=== PATIENT | female | born 1945 | race Caucasian/White ===

== ENCOUNTER 2017-04-19 11:00 | Emergency (ER) | payer MEDICARE ==
[2017-04-19] MEDS ORDERED: traMADol HCl 50 MG TAB ONE (11:39)
[2017-04-19 12:27] LABS: #Basophils 0.1 thou/uL (0.0-0.2); #Eosinphils 0.1 thou/uL (0.0-0.7); #Lymphocytes 2.7 thou/uL (1.20-3.40); #Monocytes 0.7 thou/uL (0.11-0.59); #Neutrophils 6.6 thou/uL (1.40-6.50); %Basophils 0.9 % (0.0-1.0); %Lymphocytes 26.1 % (21.0-51.0); %Monocytes 6.8 % (0.0-10.0); %Neutrophils 65.2 % (42.0-75.0); Hemoglobin 13.7 g/dL (12.0-16.0); Mean Corpuscular HGB CONC 32.5 g/dL (32.0-36.0); Mean Corpuscular Hemoglobin 27.1 pg (27.0-31.0); Mean Corpuscular Volume 83.3 fl (81.0-99.0); Mean Platelet Volume 8.4 fL (7.4-10.4); Platelet Count 253 thou/uL (130-400); RBC Distribution Width 14.5 % (11.5-14.5); Red Blood Cell (RBC) Count 5.06 mill/uL (4.20-5.40); White Blood Cell (WBC) Count 10.2 thou/uL (4.8-10.8)
[2017-04-19 12:41] LABS: ALT (SGPT) 25 U/L (8-55); AST (SGOT) 24 U/L (5-34); Albumin 4.3 g/dL (3.4-4.8); Alkaline Phosphatase 131 U/L (40-150); Anion Gap 18 mmol/L (10-20); BUN (Urea Nitrogen) 9 mg/dL (9.8-20.1); Bilirubin, Total 0.5 mg/dL (0.2-1.2); Calc. Creatinine Clearance 0 mL/min (70-130); Calcium 9.8 mg/dL (7.8-10.44); Carbon Dioxide 19 mmol/L (23-31); Chloride 107 mmol/L (98-107); Estimated GFR-MDRD 85; Globulin 2.7 g/dL (2.4-3.5); Glucose 114 mg/dL (83-110); Potassium 3.6 mmol/L (3.5-5.1); Sodium 140 mmol/L (136-145)
--- NOTE | 2017-04-19 12:47 | RAD ---
FOUR VIEWS OF THE RIGHT FEMUR: INDICATIONS: History of right leg pain after postop. COMPARISON: The exam is compared to a prior exam, dated 12/19/2016. FINDINGS: There has been progressive healing involving the instrumented supracondylar femur fracture. This is incompletely healed, however. The lateral plate and screw construct projects in the expected positio n. The expansile deformity of the proximal tibia appears similar. There is diffuse osteopenia. No acute osseous abnormality is evident. IMPRESSION: Healing instrumented supracondylar femur fracture. POS: ALOK
[2017-04-19 14:25] LABS: Bilirubin Large (Negative); Blood, Urine Negative (Negative); Clarity CLOUDY (Clear); Glucose, Urine (Dipstick) Negative (Negative); Leukocyte Moderate (Negative); Nitrite Negative (Negative); Protein, Urine (Dipstick) 30 mg/dL (Neg-Trace); Specific Gravity, Urine 1.031 (1.002-1.036)
[2017-04-19 14:34] LABS: Bacteria/HPF Rare-Few HPF (None Seen); WBC/HPF 21-50 HPF (0-3)
[2017-04-19 14:35] LABS: Pathc Cast-AUWi Flag 8.67 (0-2.49); Yeast-AUWi Flag 44.5 (0-25.0)
[2017-04-19 14:52] LABS: Hyaline Casts/LPF NONE SEEN LPF (0-3 Hyaline); Manual Microscopic Reviewed? No Path Casts Seen; RBC/HPF None Seen HPF (0-3)
== END 2017-04-19 18:16 | disposition home or self-care (01) ==
LOC: ERS 11:00
DX: K52.9 Noninfective gastroenteritis and colitis, unspecified (principal); M79.604 Pain in right leg; N39.0 Urinary tract infection, site not specified; E78.5 Hyperlipidemia, unspecified; E78.00 Pure hypercholesterolemia, unspecified; F41.9 Anxiety disorder, unspecified; F32.9 Major depressive disorder, single episode, unspecified
CPT/HCPCS: 36415; 80053; 81003; 81015; 85025; 93005; 96372; J2270

== ENCOUNTER 2018-01-06 13:57 | Outpatient (CLI) | payer MEDICARE ==
--- NOTE | 2018-01-06 16:04 | BD ---
BONE DENSITOMETRY USING DEXA: Date: 01/06/18 HISTORY: Postmenopausal screening for osteoporosis. FINDINGS: Lumbar Spine: BMD (g/cm2) L1 0.779 T-Score: -1.9 Z-Score: 0.1 L2 0.843 T-Score: -1.7 Z-Score: 0.6 L3 0.783 T-Score: -2.7 Z-Score: -0.4 L4 0.901 T-Score: -1.5 Z-Score: 1.0 L1-L4 0.831 T-Score: -2.0 Z-Score: 0.3 Right Forearm: 1/3 0.583 T-Score: -1.9 Z-Score: 0.5 Mid 0.424 T-Score: -3.3 Z-Score: -1.0 UD 0.346 T-Score: -1.7 Z-Score: 0.0 Total 0.430 T-Score: -2.8 Z-Score: -0.5 IMPRESSION: Osteopenia. POS: C
== END 2018-01-06 13:58 | disposition home or self-care (01) ==
LOC: BICMAMMO 13:57
PROVIDERS: ATTEND Internal Medicine Rheumatology
DX: M81.0 Age-related osteoporosis without current pathological fracture (principal); M85.89 Other specified disorders of bone density and structure, multiple sites
CPT/HCPCS: 77080

== ENCOUNTER 2021-09-05 11:31 | Outpatient (CLI) | payer MEDICARE | END 2021-09-05 11:32 | disposition home or self-care (01) | LOC: LABBT 11:31 | PROVIDERS: ATTEND Anesthesiology Pain Medicine | DX: Z20.822 Contact with and (suspected) exposure to COVID-19 (principal) | CPT/HCPCS: 87811 ==

== ENCOUNTER 2021-09-10 08:15 | Day surgery (SDC) | payer MEDICARE ==
[2021-09-08 15:20] VITALS: BMI 29.0
[2021-09-10] MEDS ORDERED: Bupivacaine 0.25% HCL 30 ML VIAL ONE (08:36)
[2021-09-10] MEDS ORDERED: Sodium Chloride 0.9% 100 ML ONE (09:15)
[2021-09-10] MEDS ORDERED: CEFAZOLIN 1 GM VIAL ONE (09:15)
[2021-09-10] MEDS ORDERED: Propofol 1,000 MG/100 ML VIAL IV ONE (10:57)
[2021-09-10] MEDS ORDERED: fentaNYL Citrate/PF 100 MCG/2 ML SYRINGE ONE (10:57)
[2021-09-10] MEDS ORDERED: Midazolam HCl 2 mg/2 ml Vial ONE (10:57)
[2021-09-10] MEDS ORDERED: Famotidine/PF 20 mg/2ml Vial ONE (10:57)
[2021-09-10] MEDS ORDERED: PROPOFOL 200 MG/20 ML VIAL ONE (11:28)
[2021-09-10] MEDS ORDERED: Ondansetron PF 4 MG/2 ML Vial ONE (11:28)
[2021-09-10] MEDS ORDERED: Lidocaine 1% PF 5 ML VIAL ONE (11:28)
== END 2021-09-10 13:42 | disposition home or self-care (01) ==
LOC: SDC 08:15
PROVIDERS: ATTEND Anesthesiology Pain Medicine
PROC: 0JH70BZ Insertion of Single Array Stimulator Generator into Back Subcutaneous Tissue and Fascia, Open Approach (ICD-10-PCS; principal; 2021-09-10)
PROC: 01HY0MZ Insertion of Neurostimulator Lead into Peripheral Nerve, Open Approach (ICD-10-PCS; 2021-09-10)
DX: G90.523 Complex regional pain syndrome I of lower limb, bilateral (principal); M47.816 Spondylosis without myelopathy or radiculopathy, lumbar region; G89.4 Chronic pain syndrome; G60.9 Hereditary and idiopathic neuropathy, unspecified; Z79.899 Other long term (current) drug therapy; Z88.5 Allergy status to narcotic agent; Z88.6 Allergy status to analgesic agent
CPT/HCPCS: 63655; 63685; 72020; 76000; C1778; C1787 ×2; C1820; L8689; J0690; J2250; J2405; J2704; J3490; S0020; S0028

== ENCOUNTER 2024-04-20 01:17 | Emergency (ER) | payer MEDICARE ==
[2024-04-20] MEDS ORDERED: Droperidol 5 MG/2 ML VIAL ONE (01:44)
[2024-04-20 02:32] LABS: #Basophils Less than 0.03 10x3/uL (0.0-0.2); #Eosinophils Less than 0.03 10x3/uL (0.0-0.7); %Basophils 0.2 % (0.0-1.0); %Eosinophils 0.2 % (0.0-10.0); %Monocytes 4.5 % (0.0-10.0); %Neutrophils 90.5 % (42.0-75.0); Hemoglobin 13.8 g/dL (12.0-16.0); Mean Corpuscular HGB CONC 31.4 g/dL (32.0-36.0); Mean Corpuscular Hemoglobin 27.3 pg (27.0-31.0); Mean Corpuscular Volume 87.1 fL (78.0-98.0); Mean Platelet Volume 10.1 fL (7.4-10.4); Platelet Count 222 10x3/uL (130-400); RBC Distribution Width 13.3 % (11.5-14.5); Red Blood Cell (RBC) Count 5.05 mill/uL (4.20-5.40)
[2024-04-20 02:47] LABS: ALT (SGPT) 14 U/L (Less than 34); AST (SGOT) 21 U/L (11-34); Albumin 4.2 g/dL (3.1-4.5); Alkaline Phosphatase 90 U/L (40-110); Anion Gap 23 mmol/L (10-20); BUN (Urea Nitrogen) 16 mg/dL (9.8-20.1); Bilirubin, Total 0.7 mg/dL (0.3-1.2); Calc. Creatinine Clearance 0 mL/min (70-130); Calcium 9.8 mg/dL (7.8-10.44); Carbon Dioxide 15 mmol/L (23-31); Chloride 107 mmol/L (98-107); Estimated GFR 53; Globulin 3.1 g/dL (2.4-3.5); Glucose 192 mg/dL (83-110); Lipase 23 U/L (8-78); Potassium 3.4 mmol/L (3.5-5.1); Protein, Total 7.3 g/dL (5.8-8.1); Sodium 142 mmol/L (136-145)
[2024-04-20 02:49] LABS: Troponin I 0.028 ng/mL (< 0.028)
[2024-04-20 04:08] LABS: Bacteria/HPF None Seen HPF (None Seen); Bilirubin Negative (Negative); Blood, Urine Negative (Negative); CAUTI Indications for Culture Dysuria,urgency,freq; Clarity Clear (Clear); Glucose, Urine (Dipstick) Normal (Negative); Ketone, Urine 20 mg/dL (Negative); Leukocyte Negative Leu/uL (Negative); Nitrite Negative (Negative); Protein, Urine (Dipstick) Negative (Neg-Trace); RBC/HPF 0-3 HPF (0-3); Specific Gravity, Urine 1.026 (1.002-1.036); Squamous Epithelial 0-3 HPF (0-3); Urobilinogen Normal mg/dL (Less than 2); WBC/HPF 0-3 HPF (0-3); pH, Urine 5.5 (5.0-9.0)
[2024-04-20 04:09] LABS: Urine Culture Reflex No No
[2024-04-20] MEDS ORDERED: Metoclopramide HCl 10 MG (2 mL) VIAL ONE (04:36)
[2024-04-20] MEDS ORDERED: diphenhydrAMINE 50 MG/ML VIAL ONE (04:36)
== END 2024-04-20 06:22 | disposition home or self-care (01) ==
LOC: ERS 01:17
DX: T78.1XXA Other adverse food reactions, not elsewhere classified, initial encounter (principal); R11.2 Nausea with vomiting, unspecified; E78.00 Pure hypercholesterolemia, unspecified
CPT/HCPCS: 74177; 80053; 81001; 83690; 84484; 85025; 87428; 93005; 96361; 96374; 96375; 99284; J1200; J1790; J2765; 36415